=== PATIENT | male | born 1950 | race American Indian/Alaskan Native ===

== ENCOUNTER → 2017-03-13 08:24 | Outpatient (CLI) | payer SELFPAY ==
[2017-01-10 10:02] VITALS: BMI 27.4
--- NOTE | ~2017-03-13 | EC ---
PATIENT:DONALD GARCIA DATE OF SERVICE: 03/13/17 SEX: M MEDICAL RECORD: [id number] DATE OF : [birth year] [facility] AGE OF PATIENT: 66 ADMISSION DATE: 03/13/17 REFERRING PHYSICIAN: INTERPRETING PHYSICIAN: ORI GO MD ECHOCARDIOGRAM REPORT ECHO CHARGES 4 ECHO COMPLETE CLINICAL DIAGNOSIS: DC/CAD/DYSPNEA/HTN/DYSPNEA ECHOCARDIOGRAPHIC MEASUREMENTS (adult normal given) AC root (d.<3.7cm) 2.9 cm LV Septum d (<1.2 cm> 1.4 cm Valve Excursion 1.8 cm LV Septum (systole) 1.8 cm Left Atria (s.<4.0cm> 3.7 cm LVPW d(<1.2cm) 1.6 cm RV (d.<2.3cm) 3.9 cm LVPW (sytole) 1.7 cm LV diastole(<5.6CM) 4.9 cm MV E-F(>70mm/sec) cm LV systole 2.7 cm LVOT Diameter 1.7 cm MV exc.(>10mm) 2.2 cm Est.ejection fraction (50-75%) % Pericardial Effusion N DOPPLER: LVIT cm/sec A 59.0 cm/sec E 92.0 cm/sec LA cm/sec RVSP 25 mmHg LVOT 100 cm/sec AOP1/2T m/s Asc. Ao 119 cm/sec RVOT 71 cm/sec RA cm/sec PA 103 cm/sec AV Gradient Peak 5.65 mmHg AV Mean 2.47 mmHg AV Area 2.1 cm MV Gradient Peak 4.45 mmHg MV Mean 1.42 mmHg MV Area cm COMMENTS: Torch Straightener: Sumi SHEARER Seismology Teacher: Deepa Go TAPE# PACS DATE OF SERVICE: 03/13/2017 PROCEDURE: Transthoracic echocardiogram. FINDINGS: 1. Left ventricle has mild left ventricular hypertrophy with inflow characteristics that are normal. The ejection fraction is 65%. There is no obvious regional wall motion abnormalities. 2. The left atrium is normal size, normal function. 3. Aortic valve is normal structurally. ECHOCARDIOGRAM REPORT [id number] DONALD GARCIA 4. The mitral valve has mild mitral regurgitation. 5. The tricuspid valve has trace tricuspid regurgitation with normal pressures and the right ventricular systolic pressures are normal. 6. The pulmonic valve is normal. 7. The right atrium is mildly dilated. 8. The right ventricle is mildly dilated. CONCLUSIONS: The patient has evidence of hypertensive heart disease and despite history of myocardial infarction, he has no obvious regional wall motion abnormalities with preserved LV systolic function. TRANSINT:[id number] Voice Confirmation ID: [id number] DOCUMENT ID: [id number] ORI GO MD at 1522 CC: [id number] DICTATION DATE: 03/14/17 0959 PLACEMENT MANAGER: 03/14/17 1028 DEP CLI 03/13/17 [facility] [address] [place] [address]
[~2017-03-13 08:24] MED LIST: BAYER CHEWABLE81 MG PO; PLAVIX75 MG PO; PRAVACHOL20 MG PO; TOPROL XL25 MG PO
== END | disposition home or self-care (01) ==
LOC: D.ECHO 03-09 10:00
DX: I25.2 Old myocardial infarction (principal); I25.10 Atherosclerotic heart disease of native coronary artery without angina pectoris; I10 Essential (primary) hypertension; E78.5 Hyperlipidemia, unspecified; R06.00 Dyspnea, unspecified; R42 Dizziness and giddiness

== ENCOUNTER → 2017-03-13 18:19 | Outpatient (CLI) | payer SELFPAY ==
[2017-01-10 10:02] VITALS: BMI 27.4
[2017-03-13 20:00] LABS: CHOL - HDL RATIO 2.6 ratio (2.3-4.9); LDL-HDL RATIO 1.4 ratio (1.5-3.5)
== END | disposition home or self-care (01) ==
LOC: D.LABREF 18:19
PROVIDERS: Internal Medicine Cardiovascular Disease
DX: E78.5 Hyperlipidemia, unspecified (principal)